=== PATIENT | male | born 1955 | race Hispanic/Latino ===

== ENCOUNTER 2016-06-29 13:46 | Emergency (ER) | payer OTHER ==
[~2016-06-29] VITALS: Ht 167.6 cm; Wt 78.0 kg
[~2016-06-29 13:46] MED LIST: CIPRO 500MG TA500 MG PO; GLUCOPHAGE850 MG PO; METFORMIN HCL500 MG PO; PROS5 PO; TYLENOL XSTR500 MG PO
[2016-06-29 13:54] VITALS: BP 162/93
--- NOTE | 2016-06-29 14:40 | ED GI/GU/ABDOMINAL COMPLAINT ---
History of Present Illness General Chief Complaint: Abdominal Pain/Flank Pain Stated Complaint: "I HAVE BLOOD IN MY URINE" Source: patient Exam Limitations: no limitations Vital Signs & Intake/Output Vital Signs & Intake/Output Vital Signs Date Time Temp Pulse Resp B/P Pulse O2 O2 Flow FiO2 Ox Delivery Rate 06/29 1354 97.0 88 20 162/93 98 Room Air Allergies Coded Allergies: No Known Allergies (06/29/16) Reconcile Medications Gemfibrozil 600 MG TABLET 1 TAB PO BID CHOLESTEROL (Reported) Metformin HCl 1,000 MG TABLET 1 TAB PO BID DM (Reported) Triage Note: TRIAGE: PT TO ER C/C PAIN TO R SIDE/FLANK/BACK AREA X 3 MONTHS. THOUGHT HE HAD TWISTED WRONG AND CAUSED THE PAIN. HAS NOT TRIED ANY OTC PAIN RELIEVERS. +HEMATURIA IN THE LAST 45 MINUTES. Triage Nurses Notes Reviewed? yes HPI: Mr. Herr is a 61 yo male with PMH of hyperlipidemia, diabetes, nephrolithiasis , BPH, cholelithiasis status post cholecystectomy presenting to the ED for hematuria. Patient states he was urinating about 45 minutes ago and three quarters 3 urination he noted some bright red blood. The patient noted streaking of blood as well as small little clots of blood. Patient denies dysuria or increased frequency. He was hospitalized for 3-4 days a few months ago for an infection, but he does not know what kind of infection it was. He has known BPH but does not usually have hematuria. States he has had right- sided flank pain for the past 2-3 months which has been worsening. 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 Past History Travel History Traveled to [place] past 21 day No Medical History Any Pertinent Medical History? 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 No Review of Systems Review of Systems Constitutional: Reports: see HPI. Comments Review of systems: See HPI, All other systems negative. Constitutional, no chills no fever, no malaise no weight loss HEENT: No visual changes no sore throat no congestion, no ear pain Cardiovascular: No chest pain , no palpitation , no orthopnea no ankle swelling Skin, no jaundice no rashes, no change in skin Respiratory: No dyspnea no cough no sputum no hemoptysis GI: No nausea no vomiting, no diarrhea, no bloating/constipation : + HEMATURIA, + R FLANK PAIN. No dysuria, no frequency, no discharge Muscle skeletal: No joint pain, no joint swelling, no back pain, no neck pain, Neurologic: No numbness no confusion, no headache Psych: No stress no anxiety no depression,. Heme/endocrine: No bruising no bleeding no polyuria no polydipsia Immunology: No lymphadenopathy, no splenectomy Physical Exam Physical Exam Gastrointestinal: normal bowel sounds, soft, non-tender Comments: Well-developed well-nourished person in no acute distress HEENT: Normal EENT exam; PERRL, EOMI, no nystagmus. HEAD is atraumatic. moist mucous membranes. Neck: Supple, no lymphadenopathy, normal range of motion without pain or tenderness Back: Nontender, no CVA tenderness. Full range of motion Cardiovascular: Regular rate and rhythms no murmurs rubs or gallops, normal JVP Respiratory: Chest nontender.There were no bony deformities, no asymmetry. No respiratory distress. Patient speaking in full complete sentences. Breath sounds clear to auscultation bilaterally: NO W/R/R Abdomen: Soft, nontender nondistended, no appreciable organomegaly. Normal bowel sounds. No rebound/guarding, No appreciable enlargement of the abdominal aorta, No ascites. No flank pain bilaterally. Extremity: No edema, full range of motion of extremities, normal and equal pulses bilaterally, 5 out of 5 strength noted to bilateral upper and lower extremities Neuro: Alert oriented x3, motor sensory normal, cranial nerves II through XII grossly intact. There were no obvious focal neurologic abnormalities. Skin: No appreciable rash on exposed skin, skin is warm and dry. Psych: Mood and affect is normal, memory and judgment is normal. Core Measures ACS in differential dx? No Severe Sepsis Present: No Septic Shock Present: No Progress Differential Diagnosis: biliary colic, pyelonephritis, ureterolithiasis, urethritis, UTI/pyelo, nephrolithiasis Plan of Care: Orders Procedure Date/time Status CULTURE,URINE 06/29 142 Active CBC WITHOUT DIFFERENTIAL 06/30 1423 Complete BASIC METABOLIC PANEL 06/29 142 Complete URINALYSIS 06/29 1350 Complete Laboratory Tests 06/29/16 1604: Urine Color YEL, Urine Clarity CLEAR, Urine pH 5.5, Ur Specific [place] >= 1.030 , Urine Protein NEG, Urine Ketones NEG, Urine Nitrite NEG, Urine Bilirubin NEG, Urine Urobilinogen 0.2, Ur Leukocyte Esterase NEG, Ur Microscopic SEDIMENT EXAMINED, Urine RBC 50-75 H, Urine WBC RARE, Ur Epithelial Cells RARE, Urine Bacteria RARE H, Urine Mucus FEW, Urine Hemoglobin LARGE H, Urine Glucose NEG 06/29/16 1445: Anion Gap 8, Estimated GFR > 60, BUN/Creatinine Ratio 21.4, Glucose 160 H, Calcium 9.8, CBC w Diff NO MAN DIFF REQ, RBC 4.95, MCV 87.5, MCH 30.5, RDW 12.9, MPV 8.9, Gran % 49.2, Lymphocytes % 38.5, Monocytes % 8.8, Eosinophils % 2.8, Basophils % 0.7, Absolute Granulocytes 4.6, Absolute Lymphocytes 3.6 H, Absolute Monocytes 0.8 H, Absolute Eosinophils 0.3, Absolute Basophils 0.1, PUBS MCHC 34.8 Microbiology 06/29 1604 URINE ROUT: Urine Culture - RECD Patient is a well-appearing 61-year-old male with hematuria. Concern for pyelonephritis versus ureterolithiasis versus kidney stone. Flank pain is been on ongoing for 2-3 months. No CVA tenderness on exam. Unlikely pyelonephritis ongoing for 3 months. Patient would be significantly more ill appearing and likely septic if that was the situation. Patient does have history of nephrolithiasis possibly passed a stone that caused hematuria. Basic labs obtained to assess for renal function and electrolyte abnormalities. Labs show normal creatinine function as well as stable H&H. Patient's labs are essentially unremarkable. UA negative for infectious etiology. RBCs are seen within the urine. She hasn't urologist Dr. Edwards that he follows with. Will have patient follow up as an outpatient with Dr. Edwards for evaluation of his painless hematuria. (BOUBACAR DIA,HERNAN) Initial ED EKG: none Departure Departure Time of Disposition: 1651 Disposition: HOME OR SELF CARE Condition: Stable Clinical Impression Primary Impression: Painless hematuria Referrals: GAY ZAVALA MD (PCP/Family) MICHELE EDWARDS MD Additional Instructions: Please follow-up with your urologist as needed. Do not have any evidence of a urinary tract infection today. If you have worsening bleeding, pain with urination, develop a fever, or any others concerning symptoms please return to the emergency department for evaluation. You are unable to urinate also return to the emergency department. Departure Forms: Customer Survey General Discharge Information
[2016-06-29 14:53] LABS: ABSOLUTE BASOPHIL COUNT 0.1 /CUMM (0.0-0.2); ABSOLUTE EOSINOPHIL COUNT 0.3 /CUMM (0.0-0.7); ABSOLUTE GRANULOCYTE CT 4.6 /CUMM (1.4-6.5); ABSOLUTE LYMPH COUNT 3.6 /CUMM (1.2-3.4); ABSOLUTE MONOCYTE COUNT 0.8 /CUMM (0.10-0.60); BASOPHIL % 0.7 % (0.0-2.0); EOSINOPHIL % 2.8 % (0-5); HEMATOCRIT 43.3 % (42-52); MEAN CORPUSCULAR HGB 30.5 PG (27.0-31.0); MEAN CORPUSCULAR HGB CONC 34.8 G/DL (33.0-37.0); MEAN CORPUSCULAR VOLUME 87.5 FL (80.0-94.0); MEAN PLATELET VOLUME 8.9 FL (7.4-10.4); RBC DISTRIBUTION WIDTH 12.9 % (11.5-14.5); RED BLOOD CELL CT 4.95 /CUMM (4.70-6.10); WHITE BLOOD CELL COUNT 9.3 /CUMM (4.8-10.8)
[2016-06-29 15:10] LABS: GRANULOCYTE % 49.2 % (42.2-75.2); PLATELET COUNT 276 /CUMM (130-400)
[2016-06-29] MEDS ORDERED: METFORMIN HCL1000 M1 PO (16:08)
[2016-06-29] MEDS ORDERED: GEMFIBROZIL600 M1 PO (16:08)
== END 2016-06-29 17:54 ==
LOC: ERH 13:46
PROVIDERS: Emergency Medicine
DX: R31.9 Hematuria, unspecified (principal)
CPT/HCPCS: 81001; 87086

== ENCOUNTER 2017-09-21 14:46 | Emergency (ER) | payer SELFPAY ==
[~2017-09-21] VITALS: Ht 167.6 cm; Wt 77.1 kg
[~2017-09-21 14:46] MED LIST changes: +GEMFIBROZIL600 M1 PO; +METFORMIN HCL1000 M1 PO
--- NOTE | 2017-09-21 15:09 | ED THROAT/DENTAL COMPLAINT ---
History of Present Illness General Chief Complaint: General Adult Stated Complaint: SWELLING LEFT SIDE OF FACE Source: patient Exam Limitations: no limitations Vital Signs & Intake/Output Vital Signs & Intake/Output Vital Signs Date Time Temp Pulse Resp B/P B/P Pulse O2 O2 Flow FiO2 Mean Ox Delivery Rate 09/21 1647 97.3 09/21 1452 97.3 102 18 155/99 97 Room Air Allergies Coded Allergies: No Known Allergies (06/29/16) Reconcile Medications Amoxicillin/Potassium Clav (Augmentin 875-125 Tablet) 875 MG-125 MG TABLET 1 TAB PO BID SALIVA LGAND INFECTION Gemfibrozil 600 MG TABLET 1 TAB PO BID CHOLESTEROL (Reported) Metformin HCl 1,000 MG TABLET 1 TAB PO BID DM (Reported) Triage Note: 62 YO MALE TOT RIAGE FOR EVAL OF SWELLING TO L SIDE OF FACE. STATES HIS SILIVA IS GETTING STUCK. Triage Nurses Notes Reviewed? yes Onset: Abrupt Duration: day(s): Timing: recent history Injury Environment: home HPI: 62-year-old male comes into the emergency room with complaints of left sided neck swelling. Some associated pain. Denies any fever chills. He reports that he's had this before and been an issue with the saliva gland. Denies any vomiting. Denies any other sources symptoms. Past History Travel History Traveled to [place] past 21 day No Medical History Any Pertinent Medical History? 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 No Review of Systems Review of Systems Constitutional: Reports: no symptoms. EENTM: Reports: see HPI. Respiratory: Reports: no symptoms. Cardiovascular: Reports: no symptoms. GI: Reports: no symptoms. Genitourinary: Reports: no symptoms. Musculoskeletal: Reports: no symptoms. Skin: Reports: no symptoms. Neurological/Psychological: Reports: no symptoms. Hematologic/Endocrine: Reports: no symptoms. Immunologic/Allergic: Reports: no symptoms. All Other Systems: Reviewed and Negative Physical Exam Physical Exam General Appearance: well developed/nourished, no apparent distress, alert, awake Head: atraumatic, normal appearance Eyes: Bilateral: normal appearance. Nose: normal inspection Mouth/Throat: normal mouth inspection Neck: left sided neck swelling, no erythema, no warmth Cardiovascular/Respiratory: no respiratory distress Back: normal inspection Neurologic/Psych: awake, alert, oriented x 3 Skin: intact, normal color Core Measures ACS in differential dx? No Sepsis Present: No Sepsis Focused Exam Completed? No Progress Differential Diagnosis: aspirated tooth, carious tooth, epiglottitis, Ludwigs angina, meningitis, odontogenic abscess, chace-tonsillar abscess, pharyngeal for. body, stomatitis/gingivitis, strep pharyngitis, tooth fracture Plan of Care: Orders Procedure Date/time Status CBC WITHOUT DIFFERENTIAL 09/21 145 Complete BASIC METABOLIC PANEL 09/21 145 Complete Laboratory Tests 09/21/17 1510: Anion Gap 11, Estimated GFR > 60, BUN/Creatinine Ratio 14.4, Glucose 116 H, Calcium 10.5 H, CBC w Diff NO MAN DIFF REQ, RBC 5.31, MCV 87.9, MCH 29.7, MCHC 33.8, RDW 13.6, MPV 8.8, Gran % 62.8, Lymphocytes % 27.1, Monocytes % 8.2, Eosinophils % 1.5, Basophils % 0.4, Absolute Granulocytes 9.7 H, Absolute Lymphocytes 4.2 H, Absolute Monocytes 1.3 H, Absolute Eosinophils 0.2, Absolute Basophils 0.1 Diagnostic Imaging: Viewed by Me: CT Scan. Discussed w/RAD: CT Scan. Radiology Impression: PATIENT: FERMIN SALAMANCA SR PRESENT AGE: 62 PATIENT ACCOUNT NO: [id number] : 55 LOCATION: [facility] ORDERING PHYSICIAN: Junior GODWIN SERVICE DATE: 09/21/17 EXAM TYPE : CAT - CT NECK W IV CONTRAST EXAMINATION: CT SOFT TISSUE NECK WITH CONTRAST CLINICAL INFORMATION: Left-sided neck pain and swelling. Assess for parathyroid disc. COMPARISON: CT scan of the chest 11/16/2010. TECHNIQUE: Following the intravenous administration of 95 mL Optiray 320, helical imaging was performed in the axial plane with generation of coronal and sagittal reformatted images. DLP: 577.31 mGy-cm. FINDINGS: The left submandibular gland is enlarged, with dilated intraparenchymal ducts and asymmetric enhancement compared to the right. There are no definite radiodense calculi in the floor of the mouth. There is soft tissue stranding around the left submandibular gland, and is thickening of the adjacent to this, and there is increased density in the subcutaneous fat. The parotid glands appear normal bilaterally. There are moderately prominent left level IB, level IIA/B and level III lymph nodes. Small nodes are noted at multiple levels in the neck bilaterally. There is mild prominence of the bilateral lingual and palatine tonsils. The laryngeal structures are normal. The parapharyngeal fat is preserved. The vascular structures opacify normally. There is a common origin of the left common carotid and brachiocephalic arteries. No extra mucosal soft tissue mass or fluid collection is seen. No retropharyngeal fluid collection is seen. The thyroid gland is normal. There are multiple small lymph nodes in the AP window and in the paratracheal regions anteriorly and on the left, demonstrated on prior imaging. The study redemonstrates mildly prominent axillary lymph nodes bilaterally. There are emphysematous changes in the upper zones bilaterally. Bronchiectatic changes are seen in the right upper lobe laterally. The mastoid air cells are well-aerated. There is a retention cyst anteriorly in the left maxillary sinus. The temporomandibular joints are normal. There are periapical lucencies around the roots of a carious left maxillary second premolar tooth. There are also multiple carious teeth in the mandible bilaterally with periapical lucencies. There are multilevel spondylitic changes in the cervical spine. The visualized intracranial structures are unremarkable. IMPRESSION: 1. The left submandibular gland is enlarged and enhances more intensely compared to the right. The intraparenchymal ducts are dilated. The findings are consistent with left submandibular sialoadenitis with surrounding inflammatory changes. 2. There are moderately prominent multilevel cervical and superior mediastinal lymph nodes. 3. The parotid glands appear normal bilaterally. DICTATED BY: Chandler Koch MD DATE/TIME DICTATED:09/21/171650 [employer] SURFACE HEATER OPERATOR:VINICIUS DATE/TIME TRANSCRIBED:09/21/171650 CONFIDENTIAL, DO NOT COPY WITHOUT APPROPRIATE AUTHORIZATION. <Electronically signed in Other Vendor System> SIGNED BY: Chandler Koch MD 09/21/17 7506 Departure Departure Disposition: HOME OR SELF CARE Condition: Stable Clinical Impression Primary Impression: Submandibular sialoadenitis Referrals: Steven DIA,Han Hampton MD,Chikis Additional Instructions: Take Augmentin as prescribed. Follow-up with ear nose and throat doctor. Sour candies at home or fresh Marce to call your glands to secrete more saliva. Please go over all results of today's visit with your primary care doctor. Contact your primary care doctor to let them know you were here in the emergency room. There may be nonspecific findings which may not be related to your visit today here in the emergency room but may require further evaluation and chronic monitoring by your primary care doctor. If you had a laceration today the chance of foreign body always remains. You should follow-up with your primary care doctor for recheck in 3-5 days for a wound check. If you had an x-ray done there is a chance that a fracture could have been missed on initial read and you should follow-up with your primary care doctor for repeat x-rays if symptoms persist. If your blood pressure was elevated here in the emergency room please have rechecked by [facility] primary care doctor within the next 48. If you were prescribed a narcotic here in the emergency room or any type of controlled substances you're not allowed to drive while taking this medication or operate any type of heavy machinery. Narcotics can make you feel lightheaded dizziness nausea and can cause constipation. You may need to bean picker a stool softener. Thank you for choosing [facility] emergency room. Please return to the emergency room immediately if you have any other concerns worsening of symptoms. Departure Forms: Customer Survey General Discharge Information Prescriptions: Current Visit Scripts Amoxicillin/Potassium Clav (Augmentin 875-125 Tablet) 1 TAB PO BID #20 TAB Comments 09/21/2017 5:25:56 PM Patient clinically looks well. Patient is in no apparent distress. Patient is nontoxic-appearing. Patient is to take Augmentin as prescribed. Follow-up with ear nose and throat doctor. Patient was instructed eat sour CANDIES. He clinically looks well.
[2017-09-21 15:38] LABS: ABSOLUTE BASOPHIL COUNT 0.1 /CUMM (0.0-0.2); ABSOLUTE EOSINOPHIL COUNT 0.2 /CUMM (0.0-0.7); ABSOLUTE MONOCYTE COUNT 1.3 /CUMM (0.10-0.60); BASOPHIL % 0.4 % (0.0-2.0); EOSINOPHIL % 1.5 % (0-5); GRANULOCYTE % 62.8 % (42.2-75.2); HEMATOCRIT 46.7 % (42-52); MEAN CORPUSCULAR HGB 29.7 PG (27.0-31.0); MEAN CORPUSCULAR HGB CONC 33.8 G/DL (33.0-37.0); MEAN CORPUSCULAR VOLUME 87.9 FL (80.0-94.0); MEAN PLATELET VOLUME 8.8 FL (7.4-10.4); PLATELET COUNT 370 /CUMM (130-400); RBC DISTRIBUTION WIDTH 13.6 % (11.5-14.5); RED BLOOD CELL CT 5.31 /CUMM (4.70-6.10); WHITE BLOOD CELL COUNT 15.5 /CUMM (4.8-10.8)
[2017-09-21 15:50] LABS: ABSOLUTE GRANULOCYTE CT 9.7 /CUMM (1.4-6.5); ABSOLUTE LYMPH COUNT 4.2 /CUMM (1.2-3.4)
--- NOTE | 2017-09-21 17:08 | CT SCAN REPORT ---
EXAMINATION: CT SOFT TISSUE NECK WITH CONTRAST CLINICAL INFORMATION: Left-sided neck pain and swelling. Assess for parathyroid disc. COMPARISON: CT scan of the chest 11/16/2010. TECHNIQUE: Following the intravenous administration of 95 mL Optiray 320, helical imaging was performed in the axial plane with generation of coronal and sagittal reformatted images. DLP: 577.31 mGy-cm. FINDINGS: The left submandibular gland is enlarged, with dilated intraparenchymal ducts and asymmetric enhancement compared to the right. There are no definite radiodense calculi in the floor of the mouth. There is soft tissue stranding around the left submandibular gland, and is thickening of the adjacent to this, and there is increased density in the subcutaneous fat. The parotid glands appear normal bilaterally. There are moderately prominent left level IB, level IIA/B and level III lymph nodes. Small nodes are noted at multiple levels in the neck bilaterally. There is mild prominence of the bilateral lingual and palatine tonsils. The laryngeal structures are normal. The parapharyngeal fat is preserved. The vascular structures opacify normally. There is a common origin of the left common carotid and brachiocephalic arteries. No extra mucosal soft tissue mass or fluid collection is seen. No retropharyngeal fluid collection is seen. The thyroid gland is normal. There are multiple small lymph nodes in the AP window and in the paratracheal regions anteriorly and on the left, demonstrated on prior imaging. The study redemonstrates mildly prominent axillary lymph nodes bilaterally. There are emphysematous changes in the upper zones bilaterally. Bronchiectatic changes are seen in the right upper lobe laterally. The mastoid air cells are well-aerated. There is a retention cyst anteriorly in the left maxillary sinus. The temporomandibular joints are normal. There are periapical lucencies around the roots of a carious left maxillary second premolar tooth. There are also multiple carious teeth in the mandible bilaterally with periapical lucencies. There are multilevel spondylitic changes in the cervical spine. The visualized intracranial structures are unremarkable. IMPRESSION: 1. The left submandibular gland is enlarged and enhances more intensely compared to the right. The intraparenchymal ducts are dilated. The findings are consistent with left submandibular sialoadenitis with surrounding inflammatory changes. 2. There are moderately prominent multilevel cervical and superior mediastinal lymph nodes. 3. The parotid glands appear normal bilaterally.
[2017-09-21] MEDS ORDERED: AUGMENTIN 875-1 EACH PO (17:22)
[2017-09-21 17:31] VITALS: BP 152/86
== END 2017-09-21 17:33 ==
LOC: ERH 14:46
PROVIDERS: Physician Assistant Medical
DX: K11.20 Sialoadenitis, unspecified (principal)